=== PATIENT | female | born 1970 | race Caucasian/White ===

== ENCOUNTER → 2018-06-16 09:39 | Outpatient (CLI) | payer BC, SELFPAY ==
[2018-06-16 12:11] LABS: Absolute Lymphocyte Count 1.02 X10^3/ul (0.83-4.51); Absolute Neutrophil Count 3.3 X10^3/uL (2.0-7.7); Basophil# 0.02 X10^3/uL; Basophil% 0.4 % (0-1); Eosinophil# 0.06 X10^3/uL; Eosinophils% 1.2 % (0-5); Hematocrit 42.2 % (37-47); Hemoglobin 13.3 g/dl (12.0-15.0); Lymphocyte # 1.02 X10^3/ul (4.0); Lymphocyte % 20.7 % (19-41); Mean Corp Hgb Conc 31.5 g/gl (32-36); Mean Corpuscular Hgb 27.4 pg (27.0-32.0); Mean Corpuscular Volume 86.8 fL (81-99); Mean Platelet Vol. 11.5 fl (6.2-12.0); Monocyte% 10.1 % (0-10); Neutrophil # 3.32 X10^3/uL (2.7-7.7); Neutrophil % 67.4 % (47-70); Platelet Count 281 K/mm3 (150-450); RBC Distribution Width CV 14.8 % (11.6-14.6); RBC Distribution Width SD 46.1 fl (35.1-43.9); Red Blood Count 4.86 M/mm3 (4.2-5.4); White Blood Count 4.9 K/mm3 (4.4-11.0)
[2018-06-16 12:18] LABS: POSITIVE COUNT NO; POSITIVE DIFFERENTIAL NO; POSITIVE MORPHOLOGY NO
[2018-06-16 12:19] LABS: ALB/GLOB Ratio 1.2 RATIO (0.9-2.4); AST(SGOT) 20 U/L (15-37); Alanine Aminotransfer ALT/SGPT 30 U/L (13-56); Albumin, Serum 3.8 g/dL (3.2-5.0); Alkaline Phosphatase 141 U/L (45-117); Anion Gap 8 (5-15); BUN 6 mg/dL (7-18); Calcium,Total 8.5 mg/dL (8.5-10.1); Chloride 109 mmol/L (98-107); EST Glomerular Filtration Rate 63 mL/min (>60); Est Glom Filt Rate - Afr Amer 76 mL/min (>60); Ferritin 4 ng/mL (8-252); Globulin 3.2 g/dL (2.2-4.2); Glucose 57 mg/dL (74-106); Iron 38 ug/dL (50-170); Potassium 3.8 mmol/L (3.5-5.1); Sodium Level 144 mmol/L (136-145); T4 Free Direct 0.95 ng/dL (0.76-1.46); Thyroid Stim Hormone (TSH) 1.59 uIU/mL (0.358-3.74)
[2018-06-16 12:22] LABS: Vitamin D,25 Hydroxy 28.3 ng/mL (29.95-100.01)
== END ==
PROVIDERS: Family Provider Family Medicine; PCP Family Medicine; Visit Provider Family Medicine
DX: E55.9 Vitamin D deficiency, unspecified (principal); F32.9 Major depressive disorder, single episode, unspecified; F41.9 Anxiety disorder, unspecified; R53.83 Other fatigue
CPT/HCPCS: 36415; 80053; 82306; 82728; 83540; 84439; 84443; 85025

== ENCOUNTER → 2018-08-13 10:06 | Outpatient (CLI) | payer BC, SELFPAY ==
--- NOTE | 2018-08-13 10:15 | BI_ITS ---
MAMMOGRAPHY - BILATERAL SCREENING 3-D KAIT SYNTHESIS REASON FOR EXAM: Female, 48 years old. Bilateral Screening 3-D tomosynthesis PERTINENT HISTORY: No significant family history. TECHNIQUE: 2-D mammograms and 3-D Kait synthesis of the breast (s) were performed. CAD was performed. COMPARISON: December 10, 2016 FINDINGS: The breast composition is of scattered fibroglandular tissue No dense spiculated masses or suspicious microcalcifications are identified. No architectural distortion is identified. There is no skin thickening or retraction. There has been no significant change since the prior study. December 10, 2016 BI/SCREENING MAMM (CAD), BILAT IMPRESSION: No mammographic signs of malignancy. Routine yearly mammograms recommended. ASSESSMENT CATEGORY: BIRADS Category 1: Negative. A letter regarding these results will be sent to the patient by the facility within 30 days. FOLLOW UP RECOMMENDATION: Yearly follow up mammogram recommended. (A) Approximately 10% of breast cancers are not detected by mammography. A normal mammogram should not delay biopsy of a clinically suspicious abnormality. Electronically Signed: Katherine Drew, at 13:46 EST Tel , Service support ,
== END ==
PROVIDERS: Family Provider Family Medicine; PCP Family Medicine; Referring Provider Family Medicine; Visit Provider Family Medicine
DX: Z12.31 Encounter for screening mammogram for malignant neoplasm of breast (principal)
CPT/HCPCS: 77063; 77067

== ENCOUNTER 2019-05-23 09:25 | Day surgery (SDC) | payer BC, SELFPAY ==
[2019-04-28 15:47] VITALS: BMI 31.9
--- NOTE | 2019-04-29 12:49 | HP_ITS ---
Intake Vital Signs 04/28/19 Body Mass Index (BMI) 32.4 04/28/19 Height 5 ft 7 in 04/28/19 Weight: 204 lb 04/28/19 Body Mass Index (BMI) 31.9 04/28/19 Blood Pressure 113/77 04/28/19 Blood Pressure Location Rt brachial 04/28/19 Respiratory Rate 16 04/28/19 Pulse Rate 65 04/28/19 Pulse Source Monitor 04/28/19 Temperature 98.2 F 04/28/19 Pulse Ox 98 04/28/19 Oxygen Delivery Method room air Intake Visit Reasons: Persistent Diarrhea Online Tutor Required: No Is patient in pain?: Yes (mid abdomen ) Pain scale (1-10): 4 Allergies naproxen Allergy (Unknown, Verified 04/28/19 15:53) Unknown Sulfa (Sulfonamide Antibiotics) Allergy (Verified 04/28/19 15:53) Rash morphine Adverse Reaction (Verified 04/28/19 15:53) Vomiting Medications NK 04/28/19 [History Confirmed 04/28/19] [facility] Medical History (Updated 04/29/19 @ 12:48 by Adán Robb MD) Hemorrhoids (Acute) Acid reflux (Acute) Constipation (Acute) Diarrhea (Acute) Nausea & vomiting (Acute) Abdominal pain (Acute) Asthma (Acute) Anxiety (Acute) Depression (Acute) Numbness and tingling (Acute) Back problem (Acute) Fatigue (Acute) Surgical History (Updated 04/28/19 @ 15:45 by Sarah Crystal) Hx of prior ablation treatment (Acute) Hx of tubal ligation (Acute) Hx of total hysterectomy (Acute) Hx of cholecystectomy (Acute) Hx of appendectomy (Acute) Hx of left knee surgery (Acute) Hx of tonsillectomy (Acute) History of laparoscopy (Acute) Hx of gastric bypass (Acute) Family History (Updated 04/28/19 @ 15:47 by Sarah Crystal) Mother Breast cancer Colon cancer Cancer SCC Thyroid disorder Father Melanoma Prostate cancer Diabetes CVA (cerebral vascular accident) Hypertension Social History (Updated 04/29/19 @ 12:49 by Adán Robb MD) Smoking Status: Current some day smoker alcohol intake: current alcohol intake frequency: a few times a month substance use type: does not use caffeine: Yes what type of physical activity do you participate in: none frequency: does not exercise HPI HPI HPI: KISHA FRIAS, is a 48 F who presents to the office today for HPI HPI Surgical H&P: Yes HPI: KISHA FRIAS, is a 48 F who presents to the office today for diarrhea. The patient reports that she has been having 4 to 5 days of diarrhea every week. There is no blood in stool. She is having some abdominal pain in the central area. She is not having any nausea or vomiting. She said her last colonoscopy was about 5 years ago and was normal. This was done for pelvic abdominal pain. ROS General General: Yes weight change and fatigue Cardio Cardiovascular: No murmur, pacemaker, heart disease, atrial fibrillation, high blood pressure, heart attack, heart stent, palpitations, shortness of breat with exertion or chest pain Psych Psychiatric: Yes depression and anxiety Resp Respiratory: No shortness of breath, No sleep apnea, No cough, No COPD, Yes asthma, No emphysema, No wheezing Gastro Gastrointestinal: Yes abdominal pain, Yes nausea or vomiting, Yes diarrhea, No constipation, No blood in stool, No acid reflux, Yes hemorrhoids, No ulcers, No gallbladder problem, No black,tarry stools Josiah Hematologic: No blood thinners Exam Const General: cooperative Orientation: alert, oriented x3 Resp Effort & Inspection: normal respiratory effort Auscultation: clear to auscultation bilaterally Cardio Rate: regular rate Rhythm: regular rhythm Heart Sounds: no murmurs GI Inspection: non-distended Palpation: soft, tender periumbilically Assessment & Plan Problems 1. Diarrhea, unspecified type R19.7 2. Generalized abdominal pain R10.84 Plan The patient is having central abdominal pain and diarrhea of 2 months duration which is not resolving. This does alter between normal bowel movements and diarrhea. She is not having any blood in her stool. I recommend colonoscopy for random biopsies to rule out microscopic colitis. I explained endoscopy in detail to the patient. I explained the risks including but not limited to stroke or heart attack with anesthesia, perforation of the GI tract, bleeding, infection. I explained that any of these could necessitate further emergency surgery. The patient understands and all questions were answered sufficiently. The patient wishes to proceed with procedure. Adán Robb MD Pager: [facility] [address] [place] [address], [address] [place] [address] Office: Orders Orders: Colonoscopy Today R19.7 Coding Level of Care Code Off vis,new,level 3 Diagnoses Diarrhea, unspecified type R19.7 ??Diarrhea type: unspecified type Generalized abdominal pain R10.84 ??Abdominal location: generalized 04/29/19 1249 <Electronically signed by Adán barton MD> Date _ Adán Robb MD I have re-examined the patient. There are no clinical changes since date of exam.
[2019-05-23 09:48] VITALS: BP 102/66; PULSE 64; RESP 16; TEMP 36.4; O2SAT 97; BMI 31.8
[2019-05-23] MEDS: Lactated Ringers 1,000 ML 100 ML IV (10:04)
--- NOTE | 2019-05-23 10:30 | COLBX_PTH ---
PATIENT: KISHA HARGROVE LOC: EN U#:[id number] AGE/SX: 48/F ROOM: RE05/23/[address]: Dr. Adán Robb MD : [id number] BED: DIS: 05/23/2019 SPEC #: [id number] RECD: 05/23/19 14:27 STATUS: SIRENA SYMONE #: [id number] DENIS: 05/23/19 10:[address]: Adán Robb DEPT: SURGICAL PATHOLOGY RECD BY: Ora Meza ENTERED: 05/24/19 08:53 SP TYPE: COLON BX OTHR DR: Dr. Jose Massey MD Tissues: COLON BIOPSY Procedures: Surgery Specimen Level IV HEADER OPERATION: Colonoscopy (MAC) PRE-OP DIAGNOSIS: Diarrhea TISSUE SUBMITTED: Random colon biopsies MICROSCOPIC DIAGNOSIS Random colon biopsy: No pathologic change. AM:ayala 05/25/19 MICROSCOPIC DESCRIPTION Slides are reviewed. GROSS DESCRIPTION Received in fixative is one container labeled with the patient's name and designated random colon biopsy. The specimen consists of multiple irregular fragments of light garland soft tissue that in aggregate measure 2 x 1 x 0.1 cm. The specimen is totally submitted in one cassette. / SJ:ayala 05/24/19 TC:5 CPT: 23633
[2019-05-23 11:25] VITALS: BP 102/66; BP 86/48; PULSE 70; RESP 16; TEMP 36.2; O2SAT 94
[2019-05-23 11:30] VITALS: BP 102/66; BP 89/47; PULSE 67; RESP 16; O2SAT 96
--- NOTE | 2019-05-23 11:30 | OP.ENDO_ITS ---
05/23/2019 Jose Massey Re : Colonoscopy procedure for Vaishali Lomax Dear Bryson This procedure was performed on Thursday, May 23, 2019. My impressions and recommendations are as follows: Impressions : - The entire examined colon is normal on direct and retroflexion views. - Biopsies were taken with a cold forceps from the entire colon for evaluation of microscopic colitis. Recommendations : - Discharge patient to home. - Resume previous diet. - Continue present medications. - Await pathology results. - Repeat colonoscopy in 10 years for screening purposes. My findings are described in the full procedure note, which is enclosed. If I can be of further assistance, please feel free to contact me at Doctor phone number(s): , Work: . Sincerely, Adán Robb MD 05/23/2019 11:30:34 AM This report has been signed electronically.
[2019-05-23 11:35] VITALS: BP 102/66; BP 95/63; PULSE 67; RESP 16; O2SAT 96
[2019-05-23 11:40] VITALS: BP 102/66; BP 90/55; PULSE 67; RESP 16; TEMP 36.2; O2SAT 97
[2019-05-23 12:05] VITALS: BP 102/66
== END 2019-05-23 12:06 | disposition home or self-care (01) ==
LOC: EN 09:26 → AC 09:27
PROVIDERS: Family Provider Family Medicine; PCP Family Medicine; Referring Provider Family Medicine; Visit Provider Surgery
PROC: 0DJD8ZZ Inspection of Lower Intestinal Tract, Via Natural or Artificial Opening Endoscopic (ICD-10-PCS; CPT 45378; principal; 2019-05-23 10:25)
DX: R19.7 Diarrhea, unspecified (principal); R10.84 Generalized abdominal pain; K21.9 Gastro-esophageal reflux disease without esophagitis; D50.9 Iron deficiency anemia, unspecified; D51.9 Vitamin B12 deficiency anemia, unspecified; J45.909 Unspecified asthma, uncomplicated; F17.200 Nicotine dependence, unspecified, uncomplicated; Z98.84 Bariatric surgery status
CPT/HCPCS: 45380; 88305; J7120

== ENCOUNTER → 2019-09-22 | Outpatient (CLI) | payer BC, SELFPAY ==
[2019-09-14 08:25] VITALS: BMI 31.8
--- NOTE | 2019-09-22 07:00 | BI_ITS ---
MAMMOGRAPHY - BILATERAL SCREENING REASON FOR EXAM: Female, 49 years old. Routine annual screening examination. PERTINENT HISTORY: Non-contributory. TECHNIQUE: Digital bilateral breast kait (3D mammographic acquisition) in the CC and MLO projections. 2-D mediolateral oblique (MLO) and craniocaudad (CC) views of both breasts were obtained. CAD: Full Field Digital Mammography with Computer Added Detection was performed. COMPARISON: Comparison is made with prior study dated August 13, 2018. FINDINGS: Breast Composition: There are scattered areas of fibroglandular density. There are no dominant masses or suspicious calcifications. No other significant abnormalities are identified. There has been no significant change since the prior study. BI/SCREEN MAMM (CAD) W/KAIT BILAT IMPRESSION: Stable bilateral screening mammogram. Yearly follow-up mammogram recommended. (A) ASSESSMENT CATEGORY: BIRADS Category 1: Negative. A letter regarding these results will be sent to the patient by the facility within 30 days. Approximately 10% of breast cancers are not detected by mammography. A normal mammogram should not delay biopsy of a clinically suspicious abnormality. [id number] Electronically Signed: Keegan Funk, at 8:26 EST , Service support ,
== END | disposition home or self-care (01) ==
LOC: OPBI 07:32
PROVIDERS: PCP Family Medicine; Referring Provider Nurse Practitioner Women's Health; Visit Provider Nurse Practitioner Women's Health
DX: Z12.31 Encounter for screening mammogram for malignant neoplasm of breast (principal)
CPT/HCPCS: 77063; 77067

== ENCOUNTER → 2020-10-11 07:12 | Outpatient (CLI) | payer BC, SELFPAY ==
[2019-12-14 15:51] VITALS: BMI 31.8
--- NOTE | 2020-10-11 07:15 | BI_ITS ---
MAMMOGRAPHY - BILATERAL SCREENING REASON FOR EXAM: Female, 50 years old. Routine annual screening examination. PERTINENT HISTORY: Mother with breast cancer. TECHNIQUE: Digital bilateral breast kait (3D mammographic acquisition) in the CC and MLO projections. 2-D mediolateral oblique (MLO) and craniocaudad (CC) views of both breasts were obtained. CAD: Full Field Digital Mammography with Computer Added Detection was performed. COMPARISON: Comparison is made with prior study dated 09/22/2019 and 08/13/2018. FINDINGS: Breast Composition: There are scattered areas of fibroglandular density. There are no dominant masses or suspicious calcifications. No other significant abnormalities are identified. There has been no significant change since the prior study. BI/SCRN MAMM (CAD)W/KAIT BILAT IMPRESSION: Stable bilateral screening mammogram. Yearly follow-up mammogram recommended. (A) ASSESSMENT CATEGORY: BIRADS Category 1: Negative. A letter regarding these results will be sent to the patient by the facility within 30 days. Approximately 10% of breast cancers are not detected by mammography. A normal mammogram should not delay biopsy of a clinically suspicious abnormality. [id number] Electronically Signed: Keegan Funk MD at 8:12 EST , Service support ,
== END ==
PROVIDERS: Referring Provider Nurse Practitioner Women's Health; Visit Provider Nurse Practitioner Women's Health
DX: Z12.31 Encounter for screening mammogram for malignant neoplasm of breast (principal)
CPT/HCPCS: 77063; 77067

== ENCOUNTER → 2021-04-10 | Outpatient (CLI) | payer OTHER, SELFPAY | END | disposition home or self-care (01) | LOC: LABSPEC 16:07 | PROVIDERS: Referring Provider Nurse Practitioner Women's Health; Visit Provider Nurse Practitioner Women's Health | DX: R39.15 Urgency of urination (principal) | CPT/HCPCS: 87086 ==

== ENCOUNTER → 2022-03-14 | Outpatient (CLI) | payer OTHER, SELFPAY ==
--- NOTE | 2022-03-14 08:56 | BI_ITS ---
MAMMOGRAPHY - BILATERAL SCREENING REASON FOR EXAM: Female, 51 years old. Routine annual screening examination. PERTINENT HISTORY: Mother with breast cancer. TECHNIQUE: Digital bilateral breast kait (3D mammographic acquisition) in the CC and MLO projections. 2-D mediolateral oblique (MLO) and craniocaudad (CC) views of both breasts were obtained. CAD: Full Field Digital Mammography with Computer Added Detection was performed. COMPARISON: Comparison is made with prior study 10/11/2020 and 09/22/2019. FINDINGS: Breast Composition: There are scattered areas of fibroglandular density. There are no dominant masses or suspicious calcifications. No other significant abnormalities are identified. There has been no significant change since the prior study. BI/SCRN MAMM (CAD)W/KAIT BILAT IMPRESSION: Stable bilateral screening mammogram. Yearly follow-up mammogram recommended. (A) ASSESSMENT CATEGORY: BIRADS Category 1: Negative. A letter regarding these results will be sent to the patient by the facility within 30 days. Approximately 10% of breast cancers are not detected by mammography. A normal mammogram should not delay biopsy of a clinically suspicious abnormality. [id number] Electronically Signed: Keegan Funk MD at 9:45 EDT ,
== END | disposition home or self-care (01) ==
PROVIDERS: Referring Provider Nurse Practitioner Women's Health; Visit Provider Nurse Practitioner Women's Health
DX: Z12.31 Encounter for screening mammogram for malignant neoplasm of breast (principal); Z80.3 Family history of malignant neoplasm of breast
CPT/HCPCS: 77063; 77067

== ENCOUNTER → 2022-05-21 | Outpatient (CLI) | payer OTHER, SELFPAY ==
[2022-05-21 12:17] LABS: Prolactin 5.3 ng/mL; T4 Free Direct 1.11 ng/dL (0.76-1.46); Thyroid Stim Hormone (TSH) 2.32 uIU/mL (0.358-3.74)
[2022-05-25 09:11] LABS: Testosterone Free 2.6 pg/mL (0.0-4.2)
== END | disposition home or self-care (01) ==
LOC: PAVLAB 11:26
PROVIDERS: Referring Provider Nurse Practitioner Women's Health; Visit Provider Nurse Practitioner Women's Health
DX: L68.0 Hirsutism (principal); Z13.29 Encounter for screening for other suspected endocrine disorder
CPT/HCPCS: 36415; 82627; 84146; 84402; 84439; 84443; 82626